=== PATIENT | male | born 1930 | race Caucasian/White ===

== ENCOUNTER 2017-11-10 05:00 | Inpatient (IN) | payer MEDICARE, OTHER ==
[~2017-11-10] VITALS: Ht 193 cm; Wt 94.5 kg
[~2017-11-10 05:00] MED LIST: ALLO100T PO; ASPI81TA52 PO; CARV-50 PO; COU2.5T PO; FINA5TAB11 PO; ONDA8TAB6 PO; RANI300T7 PO; SIMV20TA5 PO
[2017-11-10] MEDS ORDERED: normal saline 1000ML IV soln IVB ONE (05:10)
[2017-11-10] MEDS ORDERED: ondansetron/PF 4mg/2ml inj IV ONE (05:10)
[2017-11-10 05:23] LABS: BASOPHILS % (AUTO) 0.1 % (0-1); EOSINOPHILS % (AUTO) 0.1 % (0-6); HEMOGLOBIN 10.8 g/dl (14.0-17.9); LYMPHOCYTES # (AUTO) 0.9 X10'3 (1.1-4.8); LYMPHOCYTES % (AUTO) 9.5 % (21-51); MEAN CORPUSCULAR HEMOGLOBIN 29.1 PG (27.0-31.0); MEAN CORPUSCULAR HGB CONC 33.6 % (33.0-36.5); MEAN CORPUSCULAR VOLUME 86.6 FL (78-98); MONOCYTES # (AUTO) 0.7 X10'3 (0-0.9); MONOCYTES % (AUTO) 7.3 % (2-12); NEUTROPHILS # (AUTO) 8.2 X10'3 (1.8-7.7); PLATELET COUNT 219 X10'3 (140-440); RED CELL DISTRIBUTION WIDTH 16.9 % (11.5-14.5); WHITE BLOOD COUNT 9.9 X10'3 (4.5-11.0)
[2017-11-10 05:39] LABS: ALANINE AMINOTRANSFERASE 91 U/L (12-78); ALBUMIN 2.5 G/DL (3.4-5.0); ALBUMIN/GLOBULIN RATIO 0.5 (1.1-1.5); ALKALINE PHOSPHATASE 70 IU/L (46-116); ANION GAP 12 (8-16); BILIRUBIN,TOTAL 0.7 MG/DL (0.1-1.0); BLOOD UREA NITROGEN 24 MG/DL (7-18); BUN/CREATININE RATIO 15.7 (5.4-32.0); CALCIUM 9.1 MG/DL (8.5-10.1); CHLORIDE 104 MMOL/L (99-107); CREATININE 1.53 MG/DL (0.60-1.10); SODIUM 137 MMOL/L (135-145); TOTAL CARBON DIOXIDE 20.9 MMOL/L (24-32); TOTAL PROTEIN 7.8 G/DL (6.4-8.2); eGFR 43 ML/MIN
[2017-11-10 05:45] LABS: LIPASE 52 U/L (73-393)
[2017-11-10 05:46] LABS: ASPARTATE AMINO TRANSFERASE 79 U/L (10-37); GLUCOSE 198 MG/DL (70-104); POTASSIUM 4.2 MMOL/L (3.5-5.1)
[2017-11-10 06:14] LABS: CLARITY,URINE Clear (Clear); COLOR,URINE Yellow (Yellow); GLUCOSE, URINE Negative (Neg); KETONES,URINE Negative (Neg); LEUKOCYTE ESTERASE ,URINE Negative (Neg); NITRITES, URINE Negative (Neg); OCCULT BLOOD,URINE Negative (Neg); PROTEIN,URINE 30 mg/dl (Neg)
[2017-11-10 06:15] LABS: UA COLLECTION TYPE STRAIGHT CATH
[2017-11-10 06:24] LABS: AMORPHOUS URATES 1+; BACTERIA,URINE NONE SEEN /HPF (Neg); MUCUS STRANDS NONE SEEN /LPF (Neg); RBC,URINE NONE SEEN /HPF (0-2); SQUAMOUS EPITHELIAL CELL,UR MODERATE /LPF (FEW); WBC,URINE NONE SEEN /HPF (0-4)
[2017-11-10] MEDS ORDERED: APIX5TAB3 PO (06:58)
[2017-11-10] MEDS ORDERED: ATOR40TA PO (06:58)
[2017-11-10] MEDS ORDERED: LACTC PO (06:58)
[2017-11-10] MEDS ORDERED: SULF-14 PO (06:58)
[2017-11-10] MEDS ORDERED: FURO-150 PO (07:17)
[2017-11-10] MEDS ORDERED: CLOP75TA33 PO (07:17)
[2017-11-10] MEDS ORDERED: AMOX-580 PO (07:17)
[2017-11-10] MEDS ORDERED: AMLO2.5T2 PO (07:17)
[2017-11-10] MEDS ORDERED: METF500T PO (07:17)
[2017-11-10] MEDS ORDERED: CADE40GE2 TP (07:17)
[2017-11-10] MEDS ORDERED: LOSA25TA96 PO (07:17)
[2017-11-10] MEDS ORDERED: PANT-47 PO (07:17)
[2017-11-10] MEDS ORDERED: magnesium Cl slow-release 64mg tablet PO PRN (07:35)
[2017-11-10] MEDS ORDERED: magnesium 4gm in 100ml NS 100 ML IV PRN (07:35)
[2017-11-10] MEDS ORDERED: magnesium hydroxide 30ml (MOM) UD suspension PO PRN (07:35)
[2017-11-10] MEDS ORDERED: acetaminophen 325mg tablet PO PRN (07:35)
[2017-11-10] MEDS ORDERED: potassium Cl 40MEQ/NS 500ml 500 ML IV PRN ×2 (07:35)
[2017-11-10] MEDS ORDERED: ondansetron/PF 4mg/2ml inj IV PRN (07:35)
[2017-11-10] MEDS ORDERED: mag hydrox/Alum hydrox/simeth 30ml oral suspension PO PRN (07:35)
[2017-11-10] MEDS ORDERED: potassium Cl 20 mEq SR tablet PO PRN ×2 (07:35)
[2017-11-10] MEDS ORDERED: magnesium/D5W IVPB 50 ML IV PRN (07:35)
[2017-11-10] MEDS ORDERED: glucagon, human recombinant 1mg kit SUBCUT PRN (07:45)
[2017-11-10] MEDS ORDERED: dextrose 50%-water 50ml dispensing syringe IV PRN ×2 (07:45)
[2017-11-10] MEDS: K and/or MAG REPLACEMENT MC SCH (07:45)
[2017-11-10] MEDS ORDERED: dextrose ORAL solution 15 GM/59 ML bottle PO PRN ×2 (07:45)
[2017-11-10] MEDS ORDERED: MESSAGE TO PHARMACY PO ONE (07:45)
[2017-11-10] MEDS: normal saline 1000ml 1,000 ML IV SCH (08:07)
[2017-11-10] MEDS: aspirin 81mg tablet.DR PO SCH (09:18)
[2017-11-10] MEDS: carVEDilol 12.5mg tablet PO SCH ×2 (09:18→19:36)
[2017-11-10] MEDS: lactobacillus rhamnosus 10,000 MMU CELLS/CAPSULE PO SCH ×2 (09:18→19:36)
[2017-11-10] MEDS: losartan 50mg tablet PO SCH (09:18)
[2017-11-10] MEDS: apixaban 5mg tablet PO SCH ×2 (09:19→19:36)
[2017-11-10] MEDS: clopidogrel 75mg tablet PO SCH (09:19)
[2017-11-10] MEDS: amLODIPine 2.5mg tablet PO SCH (09:19)
[2017-11-10] MEDS: atorvastatin 20mg tablet PO SCH (09:19)
[2017-11-10] MEDS: pantoprazole 40mg Tablet.DR PO SCH (09:20)
[2017-11-10] MEDS: allopurinol 100mg tablet PO SCH (09:20)
[2017-11-10] MEDS: finasteride 5mg tablet PO SCH (09:27)
[2017-11-10 10:03] LABS: HEMOGLOBIN A1C 8.9 % (4.5-6.2)
[2017-11-10 11:00] VITALS: BP 159/83
[2017-11-10 18:00] VITALS: BP 152/77
[2017-11-10] MEDS: CefTRIAXone/D5W-Rocephin 1gm 50 ML IV SCH (19:34)
[2017-11-10] MEDS: insulin glargine (Lantus) pen - multi-dose SQ SCH (21:00)
[2017-11-10] MEDS: HYDROcodone/acetaminophen 5mg/325mg tablet PO PRN (22:05)
[2017-11-11] VITALS: BP 164/85
[2017-11-11] MEDS: normal saline 1000ml 1,000 ML IV SCH ×3 (01:20→19:31)
[2017-11-11 06:08] LABS: BASOPHILS % (AUTO) 0.4 % (0-1); EOSINOPHILS # (AUTO) 0.1 X10'3 (0-0.9); EOSINOPHILS % (AUTO) 0.6 % (0-6); HEMATOCRIT 32.3 % (42.0-52.0); HEMOGLOBIN 10.8 g/dl (14.0-17.9); LYMPHOCYTES # (AUTO) 1.3 X10'3 (1.1-4.8); LYMPHOCYTES % (AUTO) 13.6 % (21-51); MEAN CORPUSCULAR HEMOGLOBIN 28.9 PG (27.0-31.0); MEAN CORPUSCULAR HGB CONC 33.4 % (33.0-36.5); MEAN CORPUSCULAR VOLUME 86.6 FL (78-98); MEAN PLATELET VOLUME 8.2 FL (7.4-10.4); MONOCYTES # (AUTO) 0.7 X10'3 (0-0.9); NEUTROPHILS # (AUTO) 7.4 X10'3 (1.8-7.7); NEUTROPHILS % (AUTO) 78.4 % (42-75); PLATELET COUNT 203 X10'3 (140-440); RED BLOOD COUNT 3.73 X10'6 (4.70-6.10); RED CELL DISTRIBUTION WIDTH 17.2 % (11.5-14.5); WHITE BLOOD COUNT 9.4 X10'3 (4.5-11.0)
[2017-11-11 06:32] LABS: ALANINE AMINOTRANSFERASE 81 U/L (12-78); ALBUMIN 2.2 G/DL (3.4-5.0); ALBUMIN/GLOBULIN RATIO 0.4 (1.1-1.5); ALKALINE PHOSPHATASE 76 IU/L (46-116); ANION GAP 9 (8-16); ASPARTATE AMINO TRANSFERASE 62 U/L (10-37); BILIRUBIN,TOTAL 0.6 MG/DL (0.1-1.0); BLOOD UREA NITROGEN 25 MG/DL (7-18); BUN/CREATININE RATIO 16.3 (5.4-32.0); CALCIUM 9.1 MG/DL (8.5-10.1); CHLORIDE 105 MMOL/L (99-107); CREATININE 1.53 MG/DL (0.60-1.10); GLUCOSE 142 MG/DL (70-104); MAGNESIUM 1.7 MG/DL (1.5-2.4); POTASSIUM 3.8 MMOL/L (3.5-5.1); SODIUM 138 MMOL/L (135-145); TOTAL CARBON DIOXIDE 24.4 MMOL/L (24-32); TOTAL PROTEIN 7.3 G/DL (6.4-8.2); eGFR 43 ML/MIN
[2017-11-11 07:34] VITALS: BP 163/85
[2017-11-11] MEDS: K and/or MAG REPLACEMENT MC SCH (08:00)
[2017-11-11] MEDS: lactobacillus rhamnosus 10,000 MMU CELLS/CAPSULE PO SCH ×2 (08:58→19:59)
[2017-11-11] MEDS: losartan 50mg tablet PO SCH (08:58)
[2017-11-11] MEDS: carVEDilol 12.5mg tablet PO SCH ×2 (08:58→19:59)
[2017-11-11] MEDS: aspirin 81mg tablet.DR PO SCH (08:58)
[2017-11-11] MEDS: apixaban 5mg tablet PO SCH ×2 (08:59→19:59)
[2017-11-11] MEDS: atorvastatin 20mg tablet PO SCH (09:01)
[2017-11-11] MEDS: clopidogrel 75mg tablet PO SCH (09:05)
[2017-11-11] MEDS: amLODIPine 2.5mg tablet PO SCH (09:05)
[2017-11-11] MEDS: pantoprazole 40mg Tablet.DR PO SCH (09:06)
[2017-11-11] MEDS: finasteride 5mg tablet PO SCH (09:06)
[2017-11-11] MEDS: allopurinol 100mg tablet PO SCH (09:06)
[2017-11-11] MEDS: CefTRIAXone/D5W-Rocephin 1gm 50 ML IV SCH (09:06)
[2017-11-11 11:35] VITALS: BP 157/76
[2017-11-11] MEDS: HYDROcodone/acetaminophen 5mg/325mg tablet PO PRN (15:27)
[2017-11-11] MEDS ORDERED: vancomycin inj 1,250 MG in normal saline 250ml IV soln 250 ML IV SCH ×4 (16:00)
[2017-11-11 18:00] VITALS: BP 132/67
[2017-11-11] MEDS: insulin glargine (Lantus) pen - multi-dose SQ SCH (21:44)
[2017-11-12] VITALS: BP 157/70
[2017-11-12] MEDS: HYDROcodone/acetaminophen 5mg/325mg tablet PO PRN ×3 (03:43→22:08)
[2017-11-12 05:07] LABS: BASOPHILS % (AUTO) 0.1 % (0-1); EOSINOPHILS # (AUTO) 0.1 X10'3 (0-0.9); EOSINOPHILS % (AUTO) 1.6 % (0-6); HEMATOCRIT 30.4 % (42.0-52.0); HEMOGLOBIN 10.1 g/dl (14.0-17.9); LYMPHOCYTES % (AUTO) 12.5 % (21-51); MEAN CORPUSCULAR HEMOGLOBIN 28.6 PG (27.0-31.0); MEAN CORPUSCULAR HGB CONC 33.2 % (33.0-36.5); MEAN CORPUSCULAR VOLUME 86.2 FL (78-98); MEAN PLATELET VOLUME 8.2 FL (7.4-10.4); MONOCYTES # (AUTO) 0.6 X10'3 (0-0.9); MONOCYTES % (AUTO) 6.8 % (2-12); NEUTROPHILS # (AUTO) 6.5 X10'3 (1.8-7.7); PLATELET COUNT 226 X10'3 (140-440); RED BLOOD COUNT 3.53 X10'6 (4.70-6.10); RED CELL DISTRIBUTION WIDTH 17.2 % (11.5-14.5); WHITE BLOOD COUNT 8.3 X10'3 (4.5-11.0)
[2017-11-12 05:29] LABS: ALANINE AMINOTRANSFERASE 80 U/L (12-78); ALBUMIN/GLOBULIN RATIO 0.4 (1.1-1.5); ALKALINE PHOSPHATASE 71 IU/L (46-116); ANION GAP 8 (8-16); ASPARTATE AMINO TRANSFERASE 59 U/L (10-37); BILIRUBIN,TOTAL 0.5 MG/DL (0.1-1.0); BLOOD UREA NITROGEN 24 MG/DL (7-18); BUN/CREATININE RATIO 18.8 (5.4-32.0); CALCIUM 8.3 MG/DL (8.5-10.1); CHLORIDE 106 MMOL/L (99-107); CREATININE 1.28 MG/DL (0.60-1.10); GLUCOSE 170 MG/DL (70-104); MAGNESIUM 1.7 MG/DL (1.5-2.4); POTASSIUM 3.5 MMOL/L (3.5-5.1); SODIUM 136 MMOL/L (135-145); TOTAL CARBON DIOXIDE 22.1 MMOL/L (24-32); eGFR 53 ML/MIN
[2017-11-12 07:00] VITALS: BP 176/90
[2017-11-12] MEDS: K and/or MAG REPLACEMENT MC SCH (08:00)
[2017-11-12] MEDS: carVEDilol 12.5mg tablet PO SCH ×2 (08:23→20:31)
[2017-11-12] MEDS: aspirin 81mg tablet.DR PO SCH (08:23)
[2017-11-12] MEDS: losartan 50mg tablet PO SCH (08:23)
[2017-11-12] MEDS: finasteride 5mg tablet PO SCH (08:23)
[2017-11-12] MEDS: allopurinol 100mg tablet PO SCH (08:23)
[2017-11-12] MEDS: atorvastatin 20mg tablet PO SCH (08:23)
[2017-11-12] MEDS: amLODIPine 2.5mg tablet PO SCH (08:23)
[2017-11-12] MEDS: pantoprazole 40mg Tablet.DR PO SCH (08:23)
[2017-11-12] MEDS: clopidogrel 75mg tablet PO SCH (08:23)
[2017-11-12] MEDS: apixaban 5mg tablet PO SCH ×2 (08:23→20:31)
[2017-11-12] MEDS: CefTRIAXone/D5W-Rocephin 1gm 50 ML IV SCH (08:23)
[2017-11-12] MEDS: lactobacillus rhamnosus 10,000 MMU CELLS/CAPSULE PO SCH ×2 (08:23→20:31)
[2017-11-12] MEDS: insulin Lispro (HumaLOG) vial - multi-dose SQ SCH ×2 (09:38→18:47)
[2017-11-12 11:00] VITALS: BP 135/76
[2017-11-12] MEDS: vancomycin inj 1,250 MG in normal saline 250ml IV soln 250 ML IV SCH (15:46)
[2017-11-12] MEDS: normal saline 1000ml 1,000 ML IV SCH (18:39)
[2017-11-12 19:00] VITALS: BP 140/81
[2017-11-12] MEDS: insulin glargine (Lantus) pen - multi-dose SQ SCH (21:21)
[2017-11-13] VITALS: BP 151/85
[2017-11-13] MEDS: vancomycin inj 1,250 MG in normal saline 250ml IV soln 250 ML IV SCH ×2 (03:58→16:12)
[2017-11-13 06:28] LABS: ALANINE AMINOTRANSFERASE 88 U/L (12-78); ALBUMIN/GLOBULIN RATIO 0.4 (1.1-1.5); ALKALINE PHOSPHATASE 81 IU/L (46-116); ANION GAP 11 (8-16); ASPARTATE AMINO TRANSFERASE 57 U/L (10-37); BILIRUBIN,TOTAL 0.6 MG/DL (0.1-1.0); BLOOD UREA NITROGEN 18 MG/DL (7-18); BUN/CREATININE RATIO 14.5 (5.4-32.0); CALCIUM 8.8 MG/DL (8.5-10.1); CHLORIDE 106 MMOL/L (99-107); CREATININE 1.24 MG/DL (0.60-1.10); GLUCOSE 103 MG/DL (70-104); MAGNESIUM 1.5 MG/DL (1.5-2.4); POTASSIUM 3.5 MMOL/L (3.5-5.1); SODIUM 140 MMOL/L (135-145); TOTAL CARBON DIOXIDE 23.2 MMOL/L (24-32); TOTAL PROTEIN 7.1 G/DL (6.4-8.2); eGFR 55 ML/MIN
[2017-11-13 06:43] LABS: BASOPHILS % (AUTO) 0.3 % (0-1); EOSINOPHILS # (AUTO) 0.1 X10'3 (0-0.9); EOSINOPHILS % (AUTO) 1.7 % (0-6); HEMATOCRIT 30.7 % (42.0-52.0); HEMOGLOBIN 10.3 g/dl (14.0-17.9); LYMPHOCYTES # (AUTO) 1.4 X10'3 (1.1-4.8); LYMPHOCYTES % (AUTO) 16.4 % (21-51); MEAN CORPUSCULAR HEMOGLOBIN 28.5 PG (27.0-31.0); MEAN CORPUSCULAR HGB CONC 33.4 % (33.0-36.5); MEAN CORPUSCULAR VOLUME 85.2 FL (78-98); MEAN PLATELET VOLUME 7.8 FL (7.4-10.4); MONOCYTES # (AUTO) 0.7 X10'3 (0-0.9); MONOCYTES % (AUTO) 8.1 % (2-12); NEUTROPHILS # (AUTO) 6.1 X10'3 (1.8-7.7); NEUTROPHILS % (AUTO) 73.5 % (42-75); PLATELET COUNT 299 X10'3 (140-440); RED BLOOD COUNT 3.61 X10'6 (4.70-6.10); RED CELL DISTRIBUTION WIDTH 16.9 % (11.5-14.5); WHITE BLOOD COUNT 8.3 X10'3 (4.5-11.0)
[2017-11-13 07:00] VITALS: BP 173/83
[2017-11-13] MEDS: K and/or MAG REPLACEMENT MC SCH (08:00)
[2017-11-13] MEDS: clopidogrel 75mg tablet PO SCH (08:12)
[2017-11-13] MEDS: finasteride 5mg tablet PO SCH (08:12)
[2017-11-13] MEDS: pantoprazole 40mg Tablet.DR PO SCH (08:12)
[2017-11-13] MEDS: apixaban 5mg tablet PO SCH ×2 (08:12→19:48)
[2017-11-13] MEDS: carVEDilol 12.5mg tablet PO SCH ×2 (08:12→19:48)
[2017-11-13] MEDS: losartan 50mg tablet PO SCH (08:12)
[2017-11-13] MEDS: allopurinol 100mg tablet PO SCH (08:12)
[2017-11-13] MEDS: amLODIPine 2.5mg tablet PO SCH (08:12)
[2017-11-13] MEDS: atorvastatin 20mg tablet PO SCH (08:12)
[2017-11-13] MEDS: CefTRIAXone/D5W-Rocephin 1gm 50 ML IV SCH (08:12)
[2017-11-13] MEDS: lactobacillus rhamnosus 10,000 MMU CELLS/CAPSULE PO SCH ×2 (08:12→19:48)
[2017-11-13] MEDS: aspirin 81mg tablet.DR PO SCH (08:13)
[2017-11-13] MEDS: HYDROcodone/acetaminophen 5mg/325mg tablet PO PRN (08:16)
[2017-11-13 11:00] VITALS: BP 134/74
[2017-11-13] MEDS: insulin Lispro (HumaLOG) vial - multi-dose SQ SCH ×2 (13:25→18:47)
[2017-11-13 19:00] VITALS: BP 176/80
[2017-11-13] MEDS: insulin glargine (Lantus) pen - multi-dose SQ SCH (21:03)
[2017-11-13] MEDS: normal saline 1000ml 1,000 ML IV SCH (21:06)
[2017-11-14] VITALS: BP 155/84
[2017-11-14] MEDS ORDERED: VANCOMYCIN LEVEL IV ONE ×2 (03:30→15:30)
[2017-11-14] MEDS: HYDROcodone/acetaminophen 5mg/325mg tablet PO PRN (03:33)
[2017-11-14 05:04] LABS: BASOPHILS % (AUTO) 0.4 % (0-1); EOSINOPHILS # (AUTO) 0.2 X10'3 (0-0.9); HEMATOCRIT 30.7 % (42.0-52.0); HEMOGLOBIN 10.1 g/dl (14.0-17.9); LYMPHOCYTES # (AUTO) 1.4 X10'3 (1.1-4.8); MEAN CORPUSCULAR HEMOGLOBIN 28.3 PG (27.0-31.0); MEAN CORPUSCULAR HGB CONC 32.9 % (33.0-36.5); MEAN CORPUSCULAR VOLUME 86.2 FL (78-98); MEAN PLATELET VOLUME 7.9 FL (7.4-10.4); MONOCYTES # (AUTO) 0.8 X10'3 (0-0.9); MONOCYTES % (AUTO) 8.5 % (2-12); NEUTROPHILS # (AUTO) 6.7 X10'3 (1.8-7.7); NEUTROPHILS % (AUTO) 74.1 % (42-75); PLATELET COUNT 289 X10'3 (140-440); RED BLOOD COUNT 3.56 X10'6 (4.70-6.10); RED CELL DISTRIBUTION WIDTH 16.3 % (11.5-14.5)
[2017-11-14] MEDS: vancomycin inj 1,250 MG in normal saline 250ml IV soln 250 ML IV SCH ×2 (05:06→14:53)
[2017-11-14 05:18] LABS: ALANINE AMINOTRANSFERASE 82 U/L (12-78); ALBUMIN/GLOBULIN RATIO 0.4 (1.1-1.5); ALKALINE PHOSPHATASE 73 IU/L (46-116); ANION GAP 7 (8-16); ASPARTATE AMINO TRANSFERASE 54 U/L (10-37); BILIRUBIN,TOTAL 0.6 MG/DL (0.1-1.0); BLOOD UREA NITROGEN 18 MG/DL (7-18); BUN/CREATININE RATIO 15.8 (5.4-32.0); CALCIUM 8.4 MG/DL (8.5-10.1); CHLORIDE 105 MMOL/L (99-107); CREATININE 1.14 MG/DL (0.60-1.10); GLUCOSE 99 MG/DL (70-104); MAGNESIUM 1.7 MG/DL (1.5-2.4); POTASSIUM 3.2 MMOL/L (3.5-5.1); SODIUM 137 MMOL/L (135-145); TOTAL CARBON DIOXIDE 25.2 MMOL/L (24-32); TOTAL PROTEIN 7.2 G/DL (6.4-8.2); VANCOMYCIN,TROUGH 18.5 UG/ML (6.0-14.0); eGFR 61 ML/MIN
[2017-11-14] MEDS: K and/or MAG REPLACEMENT MC SCH (06:49)
[2017-11-14 07:28] VITALS: BP 151/79
[2017-11-14] MEDS: allopurinol 100mg tablet PO SCH (08:41)
[2017-11-14] MEDS: lactobacillus rhamnosus 10,000 MMU CELLS/CAPSULE PO SCH (08:41)
[2017-11-14] MEDS: finasteride 5mg tablet PO SCH (08:41)
[2017-11-14] MEDS: atorvastatin 20mg tablet PO SCH (08:41)
[2017-11-14] MEDS: amLODIPine 2.5mg tablet PO SCH (08:41)
[2017-11-14] MEDS: losartan 50mg tablet PO SCH (08:42)
[2017-11-14] MEDS: pantoprazole 40mg Tablet.DR PO SCH (08:42)
[2017-11-14] MEDS: apixaban 5mg tablet PO SCH (08:42)
[2017-11-14] MEDS: aspirin 81mg tablet.DR PO SCH (08:42)
[2017-11-14] MEDS: carVEDilol 12.5mg tablet PO SCH (08:42)
[2017-11-14] MEDS: clopidogrel 75mg tablet PO SCH (08:42)
[2017-11-14] MEDS: CefTRIAXone/D5W-Rocephin 1gm 50 ML IV SCH (08:42)
[2017-11-14] MEDS: insulin Lispro (HumaLOG) vial - multi-dose SQ SCH ×2 (08:49→13:07)
[2017-11-14] MEDS ORDERED: potassium Cl 20 mEq SR tablet PO ONE (10:15)
[2017-11-14] MEDS: normal saline 1000ml 1,000 ML IV SCH (10:41)
[2017-11-14 10:50] VITALS: BP 155/72
== END 2017-11-14 16:09 | DRG 602 ==
LOC: ER 05:00 → ED HOLD 07:33 → EDBEDREQ 08:00 → SUR 3N 08:49
PROVIDERS: ADMIT Internal Medicine; ATTEND Family Medicine
DX: L03.115 Cellulitis of right lower limb (principal); N17.0 Acute kidney failure with tubular necrosis; I13.0 Hypertensive heart and chronic kidney disease with heart failure and stage 1 through stage 4 chronic kidney disease, or unspecified chronic kidney disease; E86.0 Dehydration; E11.621 Type 2 diabetes mellitus with foot ulcer; L97.519 Non-pressure chronic ulcer of other part of right foot with unspecified severity; E11.22 Type 2 diabetes mellitus with diabetic chronic kidney disease; G30.9 Alzheimer's disease, unspecified; F02.80 Dementia in other diseases classified elsewhere, unspecified severity, without behavioral disturbance, psychotic disturbance, mood disturbance, and anxiety; G47.30 Sleep apnea, unspecified; I25.10 Atherosclerotic heart disease of native coronary artery without angina pectoris; I48.2 Chronic atrial fibrillation; I50.9 Heart failure, unspecified; N18.9 Chronic kidney disease, unspecified; I25.2 Old myocardial infarction; Z95.1 Presence of aortocoronary bypass graft; Z88.8 Allergy status to other drugs, medicaments and biological substances; Z79.82 Long term (current) use of aspirin; Z79.02 Long term (current) use of antithrombotics/antiplatelets; Z79.01 Long term (current) use of anticoagulants; Z79.84 Long term (current) use of oral hypoglycemic drugs; Z79.899 Other long term (current) drug therapy; Z86.73 Personal history of transient ischemic attack (TIA), and cerebral infarction without residual deficits
CPT/HCPCS: 36415; 73630; 73718; 80053; 80202; 81001; 82948; 83036; 83690; 83735; 83880; 84484; 85025; 87040; 87070; 87077; 87186; 93005; 96374; 96375; 97110; 97116; 97161; 99285; A4353; A4649; A6212; A6449; J0696; J1815; J2405; J3370; J7030

== ENCOUNTER 2020-06-13 10:22 | Outpatient (CLI) | payer OTHER ==
[~2020-06-13 10:22] MED LIST changes: +AMLO2.5T2 PO; +AMOX-580 PO; +APIX5TAB3 PO; +ATOR40TA PO; +CADE40GE2 TP; +CLOP75TA33 PO; +FURO-150 PO; +LACTC PO; +LOSA25TA96 PO; +METF500T PO; +PANT-47 PO; +SIMV-42 PO; -SIMV20TA5 PO; +SULF-14 PO
== END 2020-06-13 23:59 | disposition home or self-care (01) ==
LOC: RAD 10:22
PROVIDERS: ATTEND Family Medicine
DX: M19.072 Primary osteoarthritis, left ankle and foot (principal)
CPT/HCPCS: 73620